=== PATIENT | female | born 1975 | race Caucasian/White ===

== ENCOUNTER 2016-07-26 10:59 | Day surgery (SDC) | payer OTHER ==
[~2016-07-26 10:59] MED LIST: Bupivacaine 0.25%/EPINEPHrine 1:200,000 10 ML SDV ONE; Lactated Ringers 1,000 ML IV SCH; Lidocaine 2% 5 ML SDV ONE; Midazolam 1 MG/ML 2 ML SDV ONE; Octyl 2-Cyanoacrylate 1 Tube ONE; Propofol 200 MG/20 ML SDV ONE; ceFAZolin 2 GM in Premix Bag 1 BAG IV ONE; fentaNYL 250 MCG/5 ML SDV ONE
[2016-07-26] MEDS ORDERED: Scopolamine 1.5 MG Transdermal Patch TRDERM PRN (11:20)
--- NOTE | 2016-07-26 11:20 | PCM.PREANE ---
Preanesthetic Assessment - Anesthesia/Transfusion/Family Hx Anesthesia History: Prior Anesthesia Without Reaction Transfusion History: No Prior Transfusion(s) - Physical Assessment Height: 1.63 m Weight: 89.358 kg - Allergies Allergies/Adverse Reactions: Allergies Allergy/AdvReac Type Severity Reaction Status Date / Time metoclopramide [From Reglan] Allergy Dizziness Verified 07/24/16 10:42 PreAnesthesia Questionnaire HEENT History: Reports: None Cardiovascular History: Reports: None Respiratory History: Reports: Asthma (controlled) Gastrointestinal History: Reports: GERD Other Gastrointestinal History: occasional reflux Genitourinary History: Reports: None 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: , Other (see below) (h/o rt.ovarian cyst) Musculoskeletal History: Reports: None Neurological History: Reports: None Psychiatric History: Reports: Anxiety Other Psychiatric History: states takes cymbalta for sleep more than anxiety Endocrine/Metabolic History: Reports: Obesity/BMI 30+ Hematologic History: Reports: None Immunologic History: Reports: None Oncologic (Cancer) History: Reports: None Dermatologic History: Reports: None - Past Surgical History Head Surgeries/Procedures: Reports: None HEENT Surgical History: Reports: None Cardiovascular Surgical History: Reports: None GI Surgical History: Reports: None Female Surgical History: Reports: section (x2), Endometrial ablation , Tubal ligation Other Female Surgeries/Procedures: hx of c/section x2, hysteroscopy with endometrial ablation, tubal ligation Endocrine Surgical History: Reports: None Neurological Surgical History: Reports: None Musculoskeletal Surgical History: Reports: None Oncologic Surgical History: Reports: None Dermatological Surgical History: Reports: None - SUBSTANCE USE Smoking Status *Q: Former Smoker Tobacco Use Within Last Twelve Months: No Recreational Drug Use History: No - HOME MEDS Home Medications: Home Meds Albuterol Sulfate [Proair Hfa] 1 puff INH ASDIRECTED PRN 02/07/16 [History] Citalopram Hydrobromide [Celexa] 20 mg PO BEDTIME 02/07/16 [History] Fluticasone/Vilanterol [Breo Ellipta 100-25 MCG Inhalation Kit] 1 inhalation INH DAILY 02/07/16 [History] Multivitamin [One Daily Multivitamin] 1 tab PO DAILY 02/07/16 [History] Phentermine HCl 1 tab PO DAILY 02/07/16 [History] Albuterol/Ipratropium [Take Home: Albuterol/Ipratropium 4 GM Inhaler] 1 puff INH ASDIRECTED PRN 07/24/16 [History] Biotin 1,000 mcg PO DAILY 07/24/16 [History] Magnesium Oxide 250 mg PO DAILY 07/24/16 [History] - CURRENT (IN HOUSE) MEDS Current Meds: Current Medications Lactated Ringer's (Ringers, Lactated) 1,000 mls @ 125 mls/hr IV ASDIRECTED SUE Discontinued Medications Bupivacaine HCl/Epinephrine Bitart (Marcaine 0.25%/Epinephrine 1:200,000) Confirm Administered Dose 20 ml .ROUTE .STK-MED ONE Stop: 07/26/16 08:25 Fentanyl (Sublimaze) Confirm Administered Dose 250 mcg .ROUTE .STK-MED ONE Stop: 07/26/16 10:14 Cefazolin Sodium/Dextrose 2 gm (/ Premix) 50 mls @ 100 mls/hr IV ONETIME ONE Stop: 07/26/16 05:29 Lidocaine (Xylocaine-Mpf 2%) Confirm Administered Dose 10 ml .ROUTE .STK-MED ONE Stop: 07/26/16 10:14 Midazolam HCl (Versed 1 Mg/Ml) Confirm Administered Dose 2 mg .ROUTE .STK-MED ONE Stop: 07/26/16 10:14 Octyl Cyanoacrylate (Dermabond Advance) Confirm Administered Dose 1 applic .ROUTE .STK-MED ONE Stop: 07/26/16 10:25 Propofol (Diprivan 20 Ml) Confirm Administered Dose 400 mg .ROUTE .STK-MED ONE Stop: 07/26/16 10:14 Preanesthetic Assessment - ANESTHESIA/TRANSFUSION/FAMILY HX Anesthesia/Transfusion History: Prior Anesthesia Type of Anesthesia Reaction: Denies: Allergy, Anesthesia Awareness, Excessive Somnolence, Excessive Nausea/Vomiting, Excessive Itching, Excessive Shivering, Malignant Hyperthermia, Malignant Hyperthermia, Family History, Pseudocholinesterase Deficiency, Pseudocholinesterase Deficiency, Family History of, Urinary Retention, Unknown, Other (see below) Family History of Anesthesia Reaction: No Other Intubation History Comment: no known problems - REVIEW OF SYSTEMS Constitutional: Reports: no symptoms MASTER STEAM YACHT: Reports: no symptoms Respiratory: Reports: no symptoms Cardiovascular: Reports: no symptoms GI: Reports: no symptoms Other: Reports: None - PHYSICAL ASSESSMENT Height: 1.63 m Weight: 89.358 kg ASA Class: 2 Mental Status: Alert & Oriented x3 Airway Class: Mallampati = 2 Dentition: Reports: Normal Dentition Thyro-Mental Finger Breadths: 2 Mouth Opening Finger Breadths: 3 ROM/Head Extension: Full Respiratory Status: lungs clear to auscultation bilaterally Cardiovascular Status: regular rate & rhythm, normal S1, S2, no murmur, blood pressure WNL - ALLERGIES Allergies/Adverse Reactions: Allergies Allergy/AdvReac Type Severity Reaction Status Date / Time metoclopramide [From Reglan] Allergy Dizziness Verified 07/24/16 10:42 - BLOOD Blood Available: No - ANESTHESIA PLAN Preop Beta Miguel: No Anesthesia Type Planned: General Anesthesia - ACKNOWLEDGEMENTS Pt an Appropriate Candidate for the Planned Anesthesia: Yes Alternatives and Risks of Anesthesia Discussed w Pt/Guardian: Yes Pt/Guardian Understands and Agrees with Anesthesia Plan: Yes
[2016-07-26] MEDS ORDERED: HYDROmorphone 2 MG/ML Syringe ONE (12:15)
[2016-07-26] MEDS ORDERED: fentaNYL 100 MCG/2 ML SDV IVPUSH PRN (12:30)
[2016-07-26] MEDS ORDERED: HYDROmorphone 2 MG/ML Syringe IVPUSH ONE (12:30)
[2016-07-26] MEDS ORDERED: fentaNYL 100 MCG/2 ML SDV ONE (12:53)
--- NOTE | 2016-07-26 13:17 | PCM.OPNOTE ---
- General Post-Op/Procedure Note Date of Surgery/Procedure: 07/26/16 Operative Procedure(s): lap kb Findings: gb is yellow and green, and with large amt of adhesion cw chronic and acute cholecystitis; wall is not thickened; [id number] Pre Op Diagnosis: chronic cholecystitis Post-Op Diagnosis: Same Anesthesia Technique: General ET tube Primary Surgeon: Ramsey Devine Pathology: sent Complications: None Condition: Good
[2016-07-26] MEDS ORDERED: Acetaminophen/oxyCODONE 325-10 MG Tab PO PRN (13:18)
--- NOTE | 2016-07-26 17:22 | PCM.SN ---
- Free Text/Narrative Note: Pt is still very sleepy, but able to ambulate at this time. Will try PO Rx for pain control.
--- NOTE | 2016-07-26 17:25 | OR ---
SURGEON: Ramsey Devine MD DATE OF PROCEDURE: 07/26/2016 PREOPERATIVE DIAGNOSIS: Chronic and acute cholecystitis. POSTOPERATIVE DIAGNOSIS: Chronic and acute cholecystitis. PROCEDURE PERFORMED: Laparoscopic cholecystectomy. INTRAOPERATIVE FINDIN. Gallbladder was yellow and green and with large amount of adhesion consistent with chronic and acute cholecystitis. 2. Wall is not thickened. 3. The patient has moderate amount of adhesion from some inflammatory process and have violin string adhesion on top of the liver consistent with possible pelvic inflammatory disease. Could be from previous Csection X 2. PROCEDURE IN DETAIL: The patient was taken to the operating room and placed in the supine position. After the intubation of general endotracheal anesthesia, the patient's abdomen was prepped and draped in the usual sterile fashion. Using [employer], a 12 mm trocar was placed supraumbilically and then followed with pneumoperitoneum. A 5 mm trocar was placed in the epigastrium and two 5 mm trocars placed in the right upper quadrant. The placement of the last three trocars was done under direct video supervision. Upon gaining entrance to the abdominal cavity, an extensive examination was then performed. The gallbladder was located and identified and retracted to the dome of the liver at the triangle of Calot. The cystic duct was clipped three more times and then using the endoscopic clip, was transected with placement of the endoscopic clip and transection was performed with care, ensuring the posterior prong of the instruments were clearly visualized prior to exercising the procedure. The gallbladder was dissected using electrocautery out of the liver bed and then removed using endoscopic bag through the umbilical site. The gallbladder was removed en bloc and there was no bile spillage and this was then followed with extensive irrigation until the bile was clear from blood and bile. The trocars were then removed under direct video supervision. The 12 mm umbilical site was then closed with deep stitches using 0 Vicryl followed with proximal stitches using 3-0 Vicryl and Dermabond. The other three trocar sites were closed with 3-0 Vicryl followed with approximation of skin with Dermabond. The patient was then awakened and extubated and transferred to the recovery room in hemodynamically stable condition. At the conclusion of the surgery, before closing the abdominal wound, instrument count and sponge count were done and were correct. The patient tolerated the procedure well and there were no intraoperative complications. Dr. Devine was present through the whole procedure. Just before surgery, a timeout was called. The patient was identified and procedure identified and procedure started. As always, thank you for the kind referral. MADDY GILMAN /[id number] MTDD
[2016-07-26 18:34] VITALS: BP 114/67
== END 2016-07-26 18:00 | disposition home or self-care (01) ==
LOC: MW.SDS 10:59
PROVIDERS: ATTEND Surgery
PROC: 0FT44ZZ Resection of Gallbladder, Percutaneous Endoscopic Approach (ICD-10-PCS; principal; 2016-07-26)
DX: K81.1 Chronic cholecystitis (principal); K66.0 Peritoneal adhesions (postprocedural) (postinfection); J45.909 Unspecified asthma, uncomplicated; K21.9 Gastro-esophageal reflux disease without esophagitis; F41.9 Anxiety disorder, unspecified; E66.9 Obesity, unspecified; Z87.891 Personal history of nicotine dependence; Z88.8 Allergy status to other drugs, medicaments and biological substances; Z79.899 Other long term (current) drug therapy; Z98.890 Other specified postprocedural states; Z98.51 Tubal ligation status; Z68.33 Body mass index [BMI] 33.0-33.9, adult
CPT/HCPCS: 47562; 81025; 88304; A9270; J1170; J2250; J3010; J7120; 00790; J2704

== ENCOUNTER 2018-02-13 06:49 | Day surgery (SDC) | payer OTHER ==
[2018-02-12 11:24] LABS: CHLORIDE,CL 106 mmol/L (98-107); SODIUM,NA 139 mmol/L (136-145)
[~2018-02-13 06:49] MED LIST changes: -Bupivacaine 0.25%/EPINEPHrine 1:200,000 10 ML SDV ONE; +Glycopyrrolate 0.2 MG/ML SDV ONE; -Lactated Ringers 1,000 ML IV SCH; +Neostigmine Methylsulfate 1 MG/ML 5 ML Syringe ONE; -Octyl 2-Cyanoacrylate 1 Tube ONE; +Ondansetron 4 MG/2 ML SDV ONE; +Rocuronium 10 MG/ML 10 ML Syringe ONE; +Sodium Chloride 0.9% 10 ML Syringe FLUSH PRN; +Sodium Chloride 0.9% 2.5 ML Syringe FLUSH PRN
[2018-02-13] MEDS: Lactated Ringers 1,000 ML IV SCH ×2 (07:16→14:53)
--- NOTE | 2018-02-13 07:28 | PCM.PREANE ---
Preanesthetic Assessment - Anesthesia/Transfusion/Family Hx Anesthesia History: Prior Anesthesia Without Reaction Family History of Anesthesia Reaction: No Transfusion History: No Prior Transfusion(s) - Review of Systems General: No Symptoms Pulmonary: No Symptoms Cardiovascular: No Symptoms Gastrointestinal: No Symptoms Neurological: No Symptoms Other: Reports: None - Physical Assessment NPO Status Date: 02/12/18 O2 Sat by Pulse Oximetry: 98 Respiratory Rate: 16 Vital Signs: Last Vital Signs Temp 36.4 C 02/13/18 07:11 Pulse 66 02/13/18 07:11 Resp 16 02/13/18 07:11 BP 110/58 L 02/13/18 07:11 Pulse Ox 98 02/13/18 07:11 Height: 1.63 m Weight: 81.193 kg ASA Class: 2 Mental Status: Alert & Oriented x3 Airway Class: Mallampati = 1 Dentition: Reports: Normal Dentition ROM/Head Extension: Full Lungs: Clear to Auscultation, Normal Respiratory Effort Cardiovascular: Regular Rate, Regular Rhythm - Lab Values: Laboratory Last Values WBC 6.93 K/uL (4.0-11.0) 02/12/18 10:36 RBC 4.22 M/uL (4.30-5.90) L 02/12/18 10:36 Hgb 13.4 g/dL (12.0-16.0) 02/12/18 10:36 Hct 39.3 % (36.0-46.0) 02/12/18 10:36 MCV 93.1 fL (80.0-98.0) 02/12/18 10:36 MCH 31.8 pg (27.0-32.0) 02/12/18 10:36 MCHC 34.1 g/dL (31.0-37.0) 02/12/18 10:36 RDW Std Deviation 39.3 fl (28.0-62.0) 02/12/18 10:36 RDW Coeff of Vitaliy 12 % (11.0-15.0) 02/12/18 10:36 Plt Count 314 K/uL (150-400) 02/12/18 10:36 MPV 10.00 fL (7.40-12.00) 02/12/18 10:36 Sodium 139 mmol/L (136-145) 02/12/18 10:36 Potassium 3.7 mmol/L (3.5-5.1) 02/12/18 10:36 Chloride 106 mmol/L (98-107) 02/12/18 10:36 Carbon Dioxide 21.8 mmol/L (21.0-32.0) 02/12/18 10:36 BUN 15 mg/dL (7.0-18.0) 02/12/18 10:36 Creatinine 0.8 mg/dL (0.6-1.0) 02/12/18 10:36 Est Cr Clr Drug Dosing 78.30 mL/min 02/12/18 10:36 Estimated GFR (MDRD) > 60.0 ml/min 02/12/18 10:36 Glucose 110 mg/dL (74-106) H 02/12/18 10:36 Calcium 8.4 mg/dL (8.5-10.1) L 02/12/18 10:36 HCG, Qual NEGATIVE (NEG) 02/12/18 10:36 Blood Type B POSITIVE 02/12/18 10:36 Antibody Screen NEGATIVE 02/12/18 10:36 - Allergies Allergies/Adverse Reactions: Allergies Allergy/AdvReac Type Severity Reaction Status Date / Time metoclopramide [From Reglan] Allergy Dizziness Verified 02/13/18 07:16 - Anesthesia Plan Pre-Op Medication Ordered: None - Acknowledgements Anesthesia Type Planned: General Anesthesia Pt an Appropriate Candidate for the Planned Anesthesia: Yes Alternatives and Risks of Anesthesia Discussed w Pt/Guardian: Yes Pt/Guardian Understands and Agrees with Anesthesia Plan: Yes Additional Comments: PMH: RAD, last exacerbation last summer. PreAnesthesia Questionnaire HEENT History: Reports: Other (See Below) Other HEENT History: uses glasses for driving Cardiovascular History: Reports: None Respiratory History: Reports: Asthma Gastrointestinal History: Reports: None Other Gastrointestinal History: occasional reflux Genitourinary History: Reports: None GAS WORKER History: Reports: Fibroids, Musculoskeletal History: Reports: Fracture Other Musculoskeletal History: hx of fx fingers Neurological History: Reports: None Psychiatric History: Reports: Anxiety Other Psychiatric History: states takes cymbalta for sleep more than anxiety Endocrine/Metabolic History: Reports: Obesity/BMI 30+ Hematologic History: Reports: None Immunologic History: Reports: None Oncologic (Cancer) History: Reports: None Dermatologic History: Reports: None - Past Surgical History Head Surgeries/Procedures: Reports: None HEENT Surgical History: Reports: None Cardiovascular Surgical History: Reports: None GI Surgical History: Reports: Cholecystectomy Female Surgical History: Reports: Section, Endometrial Ablation Other Female Surgeries/Procedures: hx of c/section x2, hysteroscopy with endometrial ablation, tubal ligation Endocrine Surgical History: Reports: None Neurological Surgical History: Reports: None Musculoskeletal Surgical History: Reports: None Oncologic Surgical History: Reports: None Dermatological Surgical History: Reports: None - SUBSTANCE USE Smoking Status *Q: Current Some Day Smoker Tobacco Use Within Last Twelve Months: Cigarettes Recreational Drug Use History: No - HOME MEDS Home Medications: Home Meds Albuterol Sulfate [Proair Hfa] 1 puff INH ASDIRECTED PRN 02/07/16 [History] Citalopram Hydrobromide [Celexa] 20 mg PO BEDTIME 02/07/16 [History] Fluticasone/Vilanterol [Breo Ellipta 100-25 MCG Inhalation Kit] 1 inhalation INH DAILY 02/07/16 [History] Phentermine/Topiramate [Qsymia 11.25 mg-69 mg Capsule] 1 cap PO DAILY 02/07/18 [ History] - CURRENT (IN HOUSE) MEDS Current Meds: Current Medications Lactated Ringer's (Ringers, Lactated) 1,000 mls @ 125 mls/hr IV ASDIRECTED SUE Last Admin: 02/13/18 07:16 Dose: 125 mls/hr Sodium Chloride (Saline Flush) 10 ml FLUSH ASDIRECTED PRN PRN Reason: Keep Vein Open Sodium Chloride (Saline Flush) 2.5 ml FLUSH ASDIRECTED PRN PRN Reason: Keep Vein Open Discontinued Medications Fentanyl (Sublimaze) Confirm Administered Dose 250 mcg .ROUTE .STK-MED ONE Stop: 02/13/18 06:49 Glycopyrrolate (Robinul) Confirm Administered Dose 0.4 mg .ROUTE .STK-MED ONE Stop: 02/13/18 06:48 Cefazolin Sodium/Dextrose 2 gm (/ Premix) 50 mls @ 100 mls/hr IV ONETIME ONE Stop: 02/12/18 09:02 Lidocaine (Xylocaine-Mpf 2%) Confirm Administered Dose 5 ml .ROUTE .STK-MED ONE Stop: 02/13/18 06:48 Midazolam HCl (Versed 1 Mg/Ml) Confirm Administered Dose 2 mg .ROUTE .STK-MED ONE Stop: 02/13/18 06:49 Neostigmine Methylsulfate (Neostigmine) Confirm Administered Dose 5 mg .ROUTE .STK-MED ONE Stop: 02/13/18 06:48 Ondansetron HCl (Zofran) Confirm Administered Dose 4 mg .ROUTE .STK-MED ONE Stop: 02/13/18 06:48 Propofol (Diprivan 20 Ml) Confirm Administered Dose 200 mg .ROUTE .STK-MED ONE Stop: 02/13/18 06:49 Rocuronium [place] (Zemuron) Confirm Administered Dose 100 mg .ROUTE .STK-MED ONE Stop: 02/13/18 06:48
[2018-02-13] MEDS ORDERED: Fluorescein 5 ML Vial ONE (07:52)
[2018-02-13] MEDS ORDERED: Octyl 2-Cyanoacrylate 1 Tube ONE (07:52)
[2018-02-13] MEDS ORDERED: Sodium Chloride 0.9% 20 ML ONE (08:16)
[2018-02-13] MEDS ORDERED: ceFAZolin 1 GM Vial ONE (08:16)
[2018-02-13] MEDS ORDERED: ePHEDrine 50 MG/ML SDV ONE (08:17)
[2018-02-13] MEDS ORDERED: fentaNYL 100 MCG/2 ML SDV IVPUSH PRN (08:27)
[2018-02-13] MEDS ORDERED: fentaNYL 100 MCG/2 ML SDV ONE (08:45)
[2018-02-13] MEDS ORDERED: Labetalol 100 MG/20 ML MDV ONE (08:49)
[2018-02-13] MEDS ORDERED: Furosemide 40 MG/4 ML VIAL ONE (09:28)
[2018-02-13] MEDS ORDERED: HYDROmorphone 2 MG/ML SDV ONE (09:48)
[2018-02-13] MEDS ORDERED: Glycopyrrolate 0.2 MG/ML SDV ONE (09:55)
[2018-02-13] MEDS ORDERED: Morphine 4 MG/ML Syringe IVPUSH PRN (09:58)
[2018-02-13] MEDS ORDERED: Acetaminophen/oxyCODONE 325-5 MG Tab PO PRN (09:58)
[2018-02-13] MEDS ORDERED: Ondansetron 4 MG/2 ML SDV IVPUSH PRN (09:58)
[2018-02-13] MEDS ORDERED: Promethazine 25 MG/ML SDV IM PRN (09:58)
[2018-02-13] MEDS ORDERED: Ketorolac 30 MG/ML SDV IVPUSH ONE (09:58)
--- NOTE | 2018-02-13 10:03 | PCM.OPNOTE ---
- General Post-Op/Procedure Note Date of Surgery/Procedure: 02/13/18 Operative Procedure(s): TLH,LSO, R. Salpengectomy and Cystoscopy. Pre Op Diagnosis: Bleeding , pelvic pain Post-Op Diagnosis: Same Anesthesia Technique: General ET Tube Primary Surgeon: Vasiliy Schilling Assistant Secretary: Roya Alejo EBL in mLs: 100 Complications: None Condition: Good
--- NOTE | 2018-02-13 11:06 | PCM.POSTAN ---
POST ANESTHESIA ASSESSMENT - MENTAL STATUS Mental Status: Alert, Oriented - RESPIRATORY Respiratory Status: Respiratory Rate WNL, Airway Patent, O2 Saturation Stable - CARDIOVASCULAR CV Status: Pulse Rate WNL, Blood Pressure Stable - GASTROINTESTINAL GI Status: No Symptoms - PAIN Pain Score: 0 - POST OP HYDRATION Hydration Status: Adequate & Stable
--- NOTE | 2018-02-13 12:00 | OR ---
SURGEON: Vasiliy Schilling MD DATE OF PROCEDURE: PREOPERATIVE DIAGNOSES: 1. Menometrorrhagia. 2. Pelvic pain. POSTOPERATIVE DIAGNOSES: 1. Menometrorrhagia. 2. Pelvic pain. OPERATIONS PERFORMED: Multiple puncture diagnostic laparoscopy, extensive lysis of adhesion of the uterus from the anterior abdominal wall and left pelvic sidewall, total laparoscopic hysterectomy, laparoscopic left salpingo-oophorectomy, laparoscopic right salpingectomy, and cystoscopy. BROKE BEATER OPERATOR: JONATHAN Miles ANESTHESIA: General with endotracheal intubation, Mr. Jerez and Dr. Aguilar. ESTIMATED BLOOD LOSS: 100 mL. COMPLICATIONS: None. FINDINGS: The uterus is about 12 week size, adherent densely to the anterior abdominal wall and the left pelvic sidewall. Otherwise no other abnormal findings other than the size of the uterus to about 12 weeks. INDICATION FOR SURGERY: [place] referred to the admit note. PROCEDURE IN DETAIL: The patient was brought to the OR, properly identified. After adequate level of anesthesia with a Rivas catheter in the bladder. The Wu surgical colpotomizer dilator was placed in the uterus and then the operation shifted abdominally. Stab wound done beneath the umbilicus. The Veress needle was placed in the peritoneal cavity and that cavity insufflated with 3.5 liter carbon dioxide. 12 placed in the left iliac fossa and another 5 mm trocar just below the left intercostal area to aid in the visualization and to aid in the dissection. Then the operation started by using the Harmonic scalpel, lysing of the adhesion of the uterus to the anterior abdominal wall and the left pelvic sidewall was done. The superior pedicle was coagulated, transected using the [place] Harmonic scalpel and restoring normal anatomy. Then a 5 mm trocar placed in the left iliac fossa and we proceeded with the coagulating and transecting the round ligament from both sides. The superior pedicle on the right side was taken. The right ovary was preserved and the right tube was removed and then the bladder dissected totally away from the operative field and after coagulating and transecting the uterine vessel at the level of the manipulator and using the harmonic scapula, circular incision in the vaginal mucosa around the tip of the VCare manipulator was done, detaching the cervix attachment from the vagina and the cervix, uterus, right tube, left tube, and ovary removed vaginally. Then pneumoperitoneum re-established by placing vaginal pack. A thorough irrigation of the operative field shows no oozing, no bleeding. We proceeded to close the vaginal cuff laparoscopically using 2-0 PDS interrupted sutures. While we were doing that, we asked Anesthesia to give the patient fluorescein and after closing the vagina and inspection of the all ovarian pedicle making sure there was no area of bleeding, the abdomen deflated and the Rivas catheter was removed. Cystoscopy was performed. The bladder was totally intact. Both ureteric orifices were seen with the dye coming from both of them. Thus, the patency of both ureters verified. Satisfied with this procedure, the instrument and hardware were retrieved from the abdomen and the vagina and the multiple laparoscopic incision was closed in layers. Instrument and sponge count was correct. The patient tolerated the procedure well, went to recovery room in stable general condition. TIERA GILMAN /[id number]
[2018-02-13] MEDS: Acetaminophen/oxyCODONE 325-5 MG Tab PO PRN ×2 (14:02→23:20)
[2018-02-13] MEDS ORDERED: Ketorolac 30 MG/ML SDV IVPUSH PRN (16:00)
[2018-02-13] MEDS ORDERED: Citalopram 20 MG Tab PO SCH (21:00)
[2018-02-14 05:40] LABS: CHLORIDE,CL 111 mmol/L (98-107); SODIUM,NA 142 mmol/L (136-145)
[2018-02-14] MEDS: Acetaminophen/oxyCODONE 325-5 MG Tab PO PRN (08:08)
[2018-02-14 08:12] VITALS: BP 102/58
--- NOTE | 2018-02-14 08:50 | PCM.SURGPN ---
- General Info Date of Service: 02/14/18 POD#: 1 Functional Status: Reports: Pain Controlled - Review of Systems General: Reports: No Symptoms HEENT: Reports: No Symptoms Pulmonary: Reports: No Symptoms Cardiovascular: Reports: No Symptoms Gastrointestinal: Reports: No Symptoms Genitourinary: Reports: No Symptoms Musculoskeletal: Reports: No Symptoms Skin: Reports: No Symptoms Neurological: Reports: No Symptoms Psychiatric: Reports: No Symptoms - Patient Data Vitals - Most Recent: Last Vital Signs Temp 37.0 C 02/14/18 08:00 Pulse 68 02/14/18 08:00 Resp 16 02/14/18 08:00 BP 102/58 L 02/14/18 08:00 Pulse Ox 98 02/14/18 08:00 Weight - Most Recent: 81.193 kg I&O - Last 24 Hours: Intake & Output 02/13/18 02/14/18 02/14/18 22:59 06:59 14:59 Intake Total 1237 1100 Output Total 200 2000 Balance 1037 -900 Lab Results Last 24 Hrs: Laboratory Results - last 24 hr 02/14/18 02/14/18 Range/Units 04:55 04:55 WBC 7.49 (4.0-11.0) K/uL RBC 3.64 L (4.30-5.90) M/uL Hgb 11.5 L (12.0-16.0) g/dL Hct 34.3 L (36.0-46.0) % MCV 94.2 (80.0-98.0) fL MCH 31.6 (27.0-32.0) pg MCHC 33.5 (31.0-37.0) g/dL RDW Std Deviation 43.6 (28.0-62.0) fl RDW Coeff of Vitaliy 13 (11.0-15.0) % Plt Count 262 (150-400) K/uL MPV 9.80 (7.40-12.00) fL Neut % (Auto) 70.5 (48.0-80.0) % Lymph % (Auto) 17.8 (16.0-40.0) % [place] % (Auto) 5.2 (0.0-15.0) % Eos % (Auto) 6.4 (0.0-7.0) % Baso % (Auto) 0.1 (0.0-1.5) % Neut # (Auto) 5.3 (1.4-5.7) K/uL Lymph # (Auto) 1.3 (0.6-2.4) K/uL [place] # (Auto) 0.4 (0.0-0.8) K/uL Eos # (Auto) 0.5 (0.0-0.7) K/uL Baso # (Auto) 0.0 (0.0-0.1) K/uL Nucleated RBC % 0.0 /100WBC Nucleated RBCs # 0 K/uL Sodium 142 (136-145) mmol/L Potassium 3.9 (3.5-5.1) mmol/L Chloride 111 H (98-107) mmol/L Carbon Dioxide 25.0 (21.0-32.0) mmol/L BUN 8 (7.0-18.0) mg/dL Creatinine 0.7 (0.6-1.0) mg/dL Est Cr Clr Drug Dosing 89.48 mL/min Estimated GFR (MDRD) > 60.0 ml/min Glucose 103 (74-106) mg/dL Calcium 7.8 L (8.5-10.1) mg/dL Med Orders - Current: Current Medications Citalopram Hydrobromide (Celexa) 20 mg PO BEDTIME [facility] Last Admin: 02/13/18 20:53 Dose: 20 mg Lactated Ringer's (Ringers, Lactated) 1,000 mls @ 125 mls/hr IV ASDIRECTED [facility] Last Admin: 02/13/18 14:53 Dose: 125 mls/hr Ketorolac Tromethamine (Toradol) 30 mg IVPUSH Q6H PRN PRN Reason: Pain (severe 7-10) Stop: 02/18/18 16:01 Last Admin: 02/13/18 16:42 Dose: 30 mg Morphine Sulfate (Morphine) 4 mg IVPUSH Q2H PRN PRN Reason: Pain (severe 7-10) Ondansetron HCl (Zofran) 4 mg IVPUSH Q6H PRN PRN Reason: Nausea/Vomiting Oxycodone/Acetaminophen (Percocet 325-5 Mg) 1 tab PO Q4H PRN PRN Reason: Pain (moderate 4-6) Oxycodone/Acetaminophen (Percocet 325-5 Mg) 2 tab PO Q4H PRN PRN Reason: Pain (moderate 4-6) Last Admin: 02/14/18 08:08 Dose: 2 tab Breo Ellipta 1 each INH DAILY SUE Promethazine HCl (Phenergan) 25 mg IM Q6H PRN PRN Reason: Nausea/Vomiting Sodium Chloride (Saline Flush) 10 ml FLUSH ASDIRECTED PRN PRN Reason: Keep Vein Open Sodium Chloride (Saline Flush) 2.5 ml FLUSH ASDIRECTED PRN PRN Reason: Keep Vein Open Discontinued Medications Cefazolin Sodium (Ancef) Confirm Administered Dose 2 gm .ROUTE .STK-MED ONE Stop: 02/13/18 08:17 Ephedrine Sulfate (Ephedrine Sulfate) Confirm Administered Dose 50 mg .ROUTE .STK-MED ONE Stop: 02/13/18 08:18 Fentanyl (Sublimaze) Confirm Administered Dose 250 mcg .ROUTE .STK-MED ONE Stop: 02/13/18 06:49 Fentanyl (Sublimaze) 50 mcg IVPUSH Q5M PRN PRN Reason: Pain (severe 7-10) Stop: 02/14/18 08:27 Fentanyl (Sublimaze) Confirm Administered Dose 100 mcg .ROUTE .STK-MED ONE Stop: 02/13/18 08:46 Fluorescein Sodium (Ak-Fluor) Confirm Administered Dose 5 ml .ROUTE .STK-MED ONE Stop: 02/13/18 07:53 Furosemide (Lasix) Confirm Administered Dose 40 mg .ROUTE .STK-MED ONE Stop: 02/13/18 09:29 Glycopyrrolate (Robinul) Confirm Administered Dose 0.4 mg .ROUTE .STK-MED ONE Stop: 02/13/18 06:48 Glycopyrrolate (Robinul) Confirm Administered Dose 0.4 mg .ROUTE .STK-MED ONE Stop: 02/13/18 09:56 Hydromorphone HCl (Dilaudid) Confirm Administered Dose 2 mg .ROUTE .STK-MED ONE Stop: 02/13/18 09:49 Cefazolin Sodium/Dextrose 2 gm (/ Premix) 50 mls @ 100 mls/hr IV ONETIME ONE Stop: 02/12/18 09:02 Last Admin: 02/13/18 11:38 Dose: Not Given Sodium Chloride (Normal Saline) Confirm Administered Dose 20 mls @ as directed .ROUTE .STK-MED ONE Stop: 02/13/18 08:17 Influenza Virus Vaccine (Pharmacy To Dose - Influenza Vaccine) 1 each IM ONETIME ONE Stop: 02/13/18 12:19 Ketorolac Tromethamine (Toradol) 30 mg IVPUSH ONETIME ONE Stop: 02/13/18 09:59 Last Admin: 02/13/18 10:49 Dose: 30 mg Labetalol HCl (Normodyne) Confirm Administered Dose 100 mg .ROUTE .STK-MED ONE Stop: 02/13/18 08:50 Lidocaine (Xylocaine-Mpf 2%) Confirm Administered Dose 5 ml .ROUTE .STK-MED ONE Stop: 02/13/18 06:48 Midazolam HCl (Versed 1 Mg/Ml) Confirm Administered Dose 2 mg .ROUTE .STK-MED ONE Stop: 02/13/18 06:49 Neostigmine Methylsulfate (Neostigmine) Confirm Administered Dose 5 mg .ROUTE .STK-MED ONE Stop: 02/13/18 06:48 Octyl Cyanoacrylate (Dermabond Advance) Confirm Administered Dose 1 applic .ROUTE .STK-MED ONE Stop: 02/13/18 07:53 Ondansetron HCl (Zofran) Confirm Administered Dose 4 mg .ROUTE .STK-MED ONE Stop: 02/13/18 06:48 Propofol (Diprivan 20 Ml) Confirm Administered Dose 200 mg .ROUTE .STK-MED ONE Stop: 02/13/18 06:49 [facility] (Zemuron) Confirm Administered Dose 100 mg .ROUTE .STK-MED ONE Stop: 02/13/18 06:48 - Exam Wound/Incisions: Healing Well General: Alert, Oriented HEENT: Pupils Equal Neck: Supple Lungs: Clear to Auscultation, Normal Respiratory Effort Cardiovascular: Regular Rate, Regular Rhythm GI/Abdominal Exam: Normal Bowel Sounds, Soft, Non-Tender, No Organomegaly, No Distention, No Abnormal Bruit, No Mass, Pelvis Stable Extremities: Normal Inspection, Normal Range of Motion, Non-Tender, No Pedal Edema, Normal Capillary Refill Skin: Warm, Dry, Intact Neurological: No New Focal Deficit Psy/Mental Status: Alert, Normal Affect, Normal Mood - Problem List Review Problem List Initiated/Reviewed/Updated: Yes - My Orders Last 24 Hours: Active Orders 24 hr Category Date Time Status Patient Status [ADT] Routine ADT 02/13/18 09:58 Active Communication Order [RC] DAILY Care 02/13/18 14:07 Active Influenza Vaccine Charge [RC] .DISCHARGE Care 02/13/18 12:18 Active Notify Provider Vital Signs [RC] ASDIRECTED Care 02/13/18 09:58 Active RT Incentive Spirometry [RC] Q2HWA Care 02/13/18 09:58 Active Up With Assistance [RC] PER UNIT ROUTINE Care 02/13/18 09:58 Active Up ad [place] [RC] PER UNIT ROUTINE Care 02/13/18 09:58 Active Regular Diet [DIET] Diet 02/13/18 Dinner Active Acetaminophen/oxyCODONE [Percocet 325-5 MG] Med 02/13/18 09:58 Active 1 tab PO Q4H PRN Acetaminophen/oxyCODONE [Percocet 325-5 MG] Med 02/13/18 09:58 Active 2 tab PO Q4H PRN Citalopram [Celexa] Med 02/13/18 21:00 Active 20 mg PO BEDTIME Ketorolac [Toradol] Med 02/13/18 16:00 Active 30 mg IVPUSH Q6H PRN Morphine Med 02/13/18 09:58 Active 4 mg IVPUSH Q2H PRN Ondansetron [Zofran] Med 02/13/18 09:58 Active 4 mg IVPUSH Q6H PRN Patient's Own Medication [Ptom] Med 02/14/18 09:00 Active 1 each INH DAILY Promethazine [Phenergan] Med 02/13/18 09:58 Active 25 mg IM Q6H PRN Peripheral IV Discontinue [OM.PC] Routine Oth 02/13/18 09:58 Ordered Sequential Compression Device [OM.PC] Per Unit Routine Oth 02/13/18 09:58 Ordered Resuscitation Status Routine Resus Stat 02/13/18 09:58 Ordered Medication Orders Citalopram Hydrobromide (Celexa) 20 mg PO BEDTIME [facility] Last Admin: 02/13/18 20:53 Dose: 20 mg Lactated Ringer's (Ringers, Lactated) 1,000 mls @ 125 mls/hr IV ASDIRECTED [facility] Last Admin: 02/13/18 14:53 Dose: 125 mls/hr Infusion: 02/13/18 14:53 Dose: 125 mls/hr Admin: 02/13/18 07:16 Dose: 125 mls/hr Ketorolac Tromethamine (Toradol) 30 mg IVPUSH Q6H PRN PRN Reason: Pain (severe 7-10) Stop: 02/18/18 16:01 Last Admin: 02/13/18 16:42 Dose: 30 mg Morphine Sulfate (Morphine) 4 mg IVPUSH Q2H PRN PRN Reason: Pain (severe 7-10) Ondansetron HCl (Zofran) 4 mg IVPUSH Q6H PRN PRN Reason: Nausea/Vomiting Oxycodone/Acetaminophen (Percocet 325-5 Mg) 1 tab PO Q4H PRN PRN Reason: Pain (moderate 4-6) Oxycodone/Acetaminophen (Percocet 325-5 Mg) 2 tab PO Q4H PRN PRN Reason: Pain (moderate 4-6) Last Admin: 02/14/18 08:08 Dose: 2 tab Admin: 02/13/18 23:20 Dose: 2 tab Admin: 02/13/18 14:02 Dose: 2 tab Breo Ellipta 1 each INH DAILY SUE Promethazine HCl (Phenergan) 25 mg IM Q6H PRN PRN Reason: Nausea/Vomiting Sodium Chloride (Saline Flush) 10 ml FLUSH ASDIRECTED PRN PRN Reason: Keep Vein Open Sodium Chloride (Saline Flush) 2.5 ml FLUSH ASDIRECTED PRN PRN Reason: Keep Vein Open - Assessment Assessment (Free Text/Narrative):: Status post total laparoscopic hysterectomy postoperative day #1 the patient is doing well with voiding without any problem minimum vaginal bleeding on regular diet tolerated very well. Had pain is under control. - Plan Plan (Free Text/Narrative):: I am sending the patient home with the post hysterectomy instruction the patient is given prescription of Percocet 7.5/3/25/20 tablet to take when necessary for pain she have a follow-up appointment to come to the office in one week
[2018-02-14] MEDS ORDERED: BREO ELLIPTA INH SCH (09:00)
== END 2018-02-14 10:05 | disposition home or self-care (01) ==
LOC: MW.SDS 06:49 → MW.MS 10:59 → MW.SDS 02-14 10:05
PROVIDERS: ATTEND Obstetrics & Gynecology
DX: D25.1 Intramural leiomyoma of uterus (principal); N72 Inflammatory disease of cervix uteri; N83.02 Follicular cyst of left ovary; N73.6 Female pelvic peritoneal adhesions (postinfective); J45.909 Unspecified asthma, uncomplicated; E66.9 Obesity, unspecified; K21.9 Gastro-esophageal reflux disease without esophagitis; F41.9 Anxiety disorder, unspecified; F17.210 Nicotine dependence, cigarettes, uncomplicated; Z79.899 Other long term (current) drug therapy; Z88.8 Allergy status to other drugs, medicaments and biological substances
CPT/HCPCS: 36415; 58571; 80048; 84703; 85025; 85027; 86850; 86900; 86901; 90686; A9270; J0690; J1170; J1885; J1940; J2250; J2405; J2704; J3010; J3490; J7120; 00840; 88307

== ENCOUNTER 2018-09-24 14:43 | Emergency (ER) | payer OTHER ==
[2018-09-24] MEDS ORDERED: Aspirin 81 MG Tab.Chew PO ONE (15:15)
[2018-09-24] MEDS ORDERED: Sodium Chloride 0.9% 10 ML Syringe FLUSH PRN (15:15)
[2018-09-24] MEDS ORDERED: Sodium Chloride 0.9% 2.5 ML Syringe FLUSH PRN (15:15)
[2018-09-24] MEDS ORDERED: Ketorolac 30 MG/ML SDV IVPUSH ONE (15:30)
[2018-09-24] MEDS ORDERED: Sodium Chloride 0.9% 1,000 ML IV ONE (15:30)
--- NOTE | 2018-09-24 15:30 | EDM.PDOC ---
ED HPI GENERAL MEDICAL PROBLEM - General Chief Complaint: Chest Pain Stated Complaint: CHEST PAIN Time Seen by Provider: 09/24/18 15:12 Source of Information: Reports: Patient History Limitations: Reports: No Limitations - History of Present Illness INITIAL COMMENTS - FREE TEXT/NARRATIVE: HISTORY AND PHYSICAL: History of present illness: Patient is a 43-year-old female who presents to the emergency room with complaints of a frontal headache and midsternal chest pain times one hour prior to arrival. She states she has this sensation of a "tight feeling" to her anterior chest/midsternal area. The pain is localized and reproducible with palpation. The pain does not radiate anywhere. She states she has been coughing more frequently over the past 1 week as she has increased her tobacco smoking use. She has been a pack per day smoker for approximately 20 years. She also has a headache which she says she does have some light sensitivity, no noise sensitivity or nausea associated with this. Denies any head injury, trauma or falls. Patient denies any fever, chills, change in vision, syncope or near syncope. Denies any back pain or shortness of breath. Denies any abdominal pain, nausea, vomiting, diarrhea, constipation or dysuria. Has not noted any blood in urine or stool. Patient has been eating and drinking appropriately. Review of systems: As per history of present illness and below otherwise all systems reviewed and negative. Past medical history: As per history of present illness and as reviewed below otherwise noncontributory. Surgical history: As per history of present illness and as reviewed below otherwise noncontributory. Social history: See social history for further information Family history: As per history of present illness and as reviewed below otherwise noncontributory. Physical exam: General: Well-developed and well-nourished 43-year-old female. Alert and oriented. Nontoxic appearing and in no acute distress. HEENT: Atraumatic, normocephalic, pupils equal and reactive bilaterally, negative for conjunctival pallor or scleral icterus, mucous membranes moist, trachea midline. No drooling or trismus noted. No meningeal signs. No hot potato voice noted. Lungs: Clear to auscultation, breath sounds equal bilaterally, chest pain is reproducible with palpation to the anterior mid sternum. Heart: S1S2, regular rate and rhythm without overt murmur Abdomen: Soft, nondistended, nontender. Negative for masses or hepatosplenomegaly. Negative for costovertebral tenderness. Pelvis: Stable nontender. Genitourinary: Deferred. Rectal: Deferred. Skin: Intact, warm, dry. No lesions or rashes noted. Extremities: Atraumatic, moves all extremities per self without difficulty or deficits, negative for cords or calf pain. Neurovascular unremarkable. Neuro: Awake, alert, oriented. Cranial nerves II through XII unremarkable. Cerebellum unremarkable. Motor and sensory unremarkable throughout. Exam nonfocal. Notes: Lab work is unremarkable. Her chest x-ray shows no acute findings. EKG shows a normal sinus rhythm with a rate of 63. Vital signs have been stable. I did offer her admission for continued observation. She declines. is at the bedside, stating that they will return if her symptoms continue, worsen or new symptoms develop. Supportive care measures were reviewed and discussed. Voices understanding and is agreeable to plan of care. Denies any further questions or concerns at this time. Diagnostics: CBC, CMP, chest x-ray, troponin, EKG Therapeutics: Aspirin, normal saline, Toradol Prescription: None Impression: Atypical chest pain Headache Plan: 1. Stop smoking 2. Follow up with your primary care provider as we discussed. 3. Return to the ED as needed and as discussed. Definitive disposition and diagnosis as appropriate pending reevaluation and review of above. chest Pain Score (Numeric/FACES): 5 - Related Data Allergies Allergy/AdvReac Type Severity Reaction Status Date / Time metoclopramide [From Reglan] Allergy Dizziness Verified 02/13/18 07:16 Home Meds: Home Meds Albuterol Sulfate [Proair Hfa] 1 puff INH ASDIRECTED PRN 02/07/16 [History] Citalopram Hydrobromide [Celexa] 20 mg PO BEDTIME 02/07/16 [History] Fluticasone/Vilanterol [Breo Ellipta 100-25 MCG Inhalation Kit] 1 inhalation INH DAILY 02/07/16 [History] Phentermine/Topiramate [Qsymia 11.25 mg-69 mg Capsule] 1 cap PO DAILY 02/07/18 [ History] oxyCODONE HCl/Acetaminophen [Percocet 7.5-325 mg Tablet] 1 each PO Q4H #20 tablet 02/14/18 [Rx] Past Medical History HEENT History: Reports: None Other HEENT History: uses glasses for driving Cardiovascular History: Reports: None Respiratory History: Reports: Asthma Gastrointestinal History: Reports: GERD Other Gastrointestinal History: occasional reflux Genitourinary History: Reports: None [employer] History: Reports: , Other (See Below) Musculoskeletal History: Reports: None Other Musculoskeletal History: hx of fx fingers Neurological History: Reports: None Psychiatric History: Reports: Anxiety Other Psychiatric History: states takes cymbalta for sleep more than anxiety Endocrine/Metabolic History: Reports: Obesity/BMI 30+ Hematologic History: Reports: None Immunologic History: Reports: None Oncologic (Cancer) History: Reports: None Dermatologic History: Reports: None - Infectious Disease History Infectious Disease History: Reports: Chicken Pox, Shingles - Past Surgical History Head Surgeries/Procedures: Reports: None Cardiovascular Surgical History: Reports: None GI Surgical History: Reports: Cholecystectomy Female Surgical History: Reports: Section, Endometrial Ablation, Hysterectomy, Tubal Ligation Endocrine Surgical History: Reports: None Neurological Surgical History: Reports: None Oncologic Surgical History: Reports: None Dermatological Surgical History: Reports: None Social & Family History - Family History Family Medical History: Noncontributory - Tobacco Use Smoking Status *Q: Current Every Day Smoker Years of Tobacco use: 20 Packs/Tins Daily: 1 - Caffeine Use Caffeine Use: Reports: Coffee - Recreational Drug Use Recreational Drug Use: No ED ROS GENERAL - Review of Systems Review Of Systems: ROS reveals no pertinent complaints other than HPI. ED EXAM, GENERAL - Physical Exam Exam: See Below (See dictation) Course - Vital Signs Last Recorded V/S: Last Vital Signs Temp 98 F 09/24/18 14:51 Pulse 56 L 09/24/18 17:11 Resp 18 09/24/18 17:11 BP 123/69 09/24/18 17:11 Pulse Ox 100 09/24/18 17:11 - Orders/Labs/Meds Orders: Active Orders 24 hr Category Date Time Status EKG Documentation Completion [RC] STAT Care 09/24/18 15:15 Active Saline Lock Insert [OM.PC] Stat Oth 09/24/18 15:15 Ordered Labs: Laboratory Tests 09/24/18 09/24/18 Range/Units 15:25 15:25 WBC 6.24 (4.0-11.0) K/uL RBC 4.11 L (4.30-5.90) M/uL Hgb 12.7 (12.0-16.0) g/dL Hct 37.6 (36.0-46.0) % MCV 91.5 (80.0-98.0) fL MCH 30.9 (27.0-32.0) pg MCHC 33.8 (31.0-37.0) g/dL RDW Std Deviation 43.3 (28.0-62.0) fl RDW Coeff of Vitaliy 13 (11.0-15.0) % Plt Count 297 (150-400) K/uL MPV 10.00 (7.40-12.00) fL Neut % (Auto) 59.7 (48.0-80.0) % Lymph % (Auto) 30.8 (16.0-40.0) % [place] % (Auto) 5.8 (0.0-15.0) % Eos % (Auto) 3.4 (0.0-7.0) % Baso % (Auto) 0.3 (0.0-1.5) % Neut # (Auto) 3.7 (1.4-5.7) K/uL Lymph # (Auto) 1.9 (0.6-2.4) K/uL [place] # (Auto) 0.4 (0.0-0.8) K/uL Eos # (Auto) 0.2 (0.0-0.7) K/uL Baso # (Auto) 0.0 (0.0-0.1) K/uL Nucleated RBC % 0.0 /100WBC Nucleated RBCs # 0 K/uL Sodium 141 (136-145) mmol/L Potassium 3.5 (3.5-5.1) mmol/L Chloride 108 H (98-107) mmol/L Carbon Dioxide 21.9 (21.0-32.0) mmol/L BUN 16 (7.0-18.0) mg/dL Creatinine 0.8 (0.6-1.0) mg/dL Est Cr Clr Drug Dosing 77.49 mL/min Estimated GFR (MDRD) > 60.0 ml/min Glucose 86 (74-106) mg/dL Calcium 8.4 L (8.5-10.1) mg/dL Total Bilirubin 0.4 (0.2-1.0) mg/dL AST 11 L (15-37) IU/L ALT 22 (14-63) IU/L Alkaline Phosphatase 62 (46-116) U/L Troponin I < 0.050 (0.000-0.056) ng/mL Total Protein 6.9 (6.4-8.2) g/dL Albumin 3.6 (3.4-5.0) g/dL Globulin 3.3 (2.6-4.0) g/dL Albumin/Globulin Ratio 1.1 (0.9-1.6) Meds: Medications Discontinued Medications Generic Name Dose Route Start Last Admin Trade Name Freq PRN Reason Stop Dose Admin Aspirin 324 mg 09/24/18 15:15 09/24/18 15:20 Aspirin PO 09/24/18 15:16 324 mg ONETIME ONE Administration Sodium Chloride 1,000 mls @ 999 mls/hr 09/24/18 15:30 09/24/18 15:35 Normal Saline IV 09/24/18 16:30 999 mls/hr STAT ONE Administration Ketorolac Tromethamine 30 mg 09/24/18 15:30 09/24/18 15:35 Toradol IVPUSH 09/24/18 15:31 30 mg ONETIME ONE Administration Morphine Sulfate 4 mg 09/24/18 16:30 09/24/18 16:34 Morphine IVPUSH 09/24/18 16:31 4 mg ONETIME ONE Administration Sodium Chloride 10 ml 09/24/18 15:15 09/24/18 15:21 Saline Flush FLUSH 10 ml ASDIRECTED PRN Administration Keep Vein Open Sodium Chloride 2.5 ml 09/24/18 15:15 09/24/18 15:21 Saline Flush FLUSH 2.5 ml ASDIRECTED PRN Administration Keep Vein Open Departure - Departure Time of Disposition: 18:54 Disposition: Home, Self-Care 01 Clinical Impression: Atypical chest pain Headache Qualifiers: Headache type: unspecified Headache chronicity pattern: acute headache Intractability: not intractable Qualified Code(s): R51 - Headache Instructions: Nonspecific Chest Pain Referrals: PCP,None [Primary Care Provider] - Forms: ED Department Discharge Additional Instructions: The following information is given to patients seen in the emergency department who are being discharged to home. This information is to outline your options for follow-up care. We provide all patients seen in our emergency department with a follow-up referral. The need for follow-up, as well as the timing and circumstances, are variable depending upon the specifics of your emergency department visit. If you don't have a primary care physician on staff, we will provide you with a referral. We always advise you to contact your personal physician following an emergency department visit to inform them of the circumstance of the visit and for follow-up with them and/or the need for any referrals to a consulting specialist. The emergency department will also refer you to a specialist when appropriate. This referral assures that you have the opportunity for follow-up care with a specialist. All of these measure are taken in an effort to provide you with optimal care, which includes your follow-up. Under all circumstances we always encourage you to contact your private physician who remains a resource for coordinating your care. When calling for follow-up care, please make the office aware that this follow-up is from your recent emergency room visit. If for any reason you are refused follow-up, please contact the [facility] Emergency Department at and asked to speak to the emergency department charge nurse. [facility] [address] [place] [address] [id number] 1. Stop smoking 2. Follow up with your primary care provider as we discussed. 3. Return to the ED as needed and as discussed. - My Orders Last 24 Hours: My Active Orders 09/24/18 15:15 EKG Documentation Completion [RC] STAT Saline Lock Insert [OM.PC] Stat - Assessment/Plan Last 24 Hours: My Active Orders 09/24/18 15:15 EKG Documentation Completion [RC] STAT Saline Lock Insert [OM.PC] Stat
--- NOTE | 2018-09-24 15:39 | CR ---
EXAMINATION: Portable chest radiograph. HISTORY: Chest pain. FINDINGS: The trachea is midline. The cardiomediastinal silhouette is within normal limits. No pulmonary infiltrates, effusions or pneumothorax. Osseous structures appear unremarkable. IMPRESSION: No acute cardiopulmonary process.
[2018-09-24 16:08] LABS: CHLORIDE,CL 108 mmol/L (98-107); SODIUM,NA 141 mmol/L (136-145)
[2018-09-24] MEDS ORDERED: Morphine 4 MG/ML Syringe IVPUSH ONE (16:30)
[2018-09-24 17:12] VITALS: BP 123/69
== END 2018-09-24 17:12 | disposition home or self-care (01) ==
LOC: MW.ED 14:43
DX: R07.89 Other chest pain (principal); R51 Headache; K21.9 Gastro-esophageal reflux disease without esophagitis; F41.9 Anxiety disorder, unspecified; F17.210 Nicotine dependence, cigarettes, uncomplicated; Z88.8 Allergy status to other drugs, medicaments and biological substances; Z79.899 Other long term (current) drug therapy
CPT/HCPCS: 36415; 71045; 80053; 84484; 85025; 93005; 96361; 96374; 96375; 99285; A9270; J1885; J7040; 99283; J2270

== ENCOUNTER 2020-07-20 09:00 | Day surgery (SDC) | payer BC, OTHER ==
[~2020-07-20 09:00] MED LIST changes: -Glycopyrrolate 0.2 MG/ML SDV ONE; +Lactated Ringers 1,000 ML IV SCH; -Lidocaine 2% 5 ML SDV ONE; -Neostigmine Methylsulfate 1 MG/ML 5 ML Syringe ONE; -Rocuronium 10 MG/ML 10 ML Syringe ONE; -Sodium Chloride 0.9% 10 ML Syringe FLUSH PRN; -Sodium Chloride 0.9% 2.5 ML Syringe FLUSH PRN; -ceFAZolin 2 GM in Premix Bag 1 BAG IV ONE; +fentaNYL 100 MCG/2 ML SDV ONE; -fentaNYL 250 MCG/5 ML SDV ONE
--- NOTE | 2020-07-20 09:41 | PCM.PREANE ---
Preanesthetic Assessment - Anesthesia/Transfusion/Family Hx Anesthesia History: Prior Anesthesia Without Reaction Family History of Anesthesia Reaction: No Transfusion History: No Prior Transfusion(s) - Review of Systems General: No Symptoms Pulmonary: No Symptoms Cardiovascular: No Symptoms Gastrointestinal: No Symptoms Neurological: No Symptoms Other: Reports: None - Physical Assessment NPO Status Date: 07/19/20 NPO Status Time: 20:00 Height: 1.63 m Weight: 83.461 kg ASA Class: 2 Mental Status: Alert & Oriented x3 Airway Class: Mallampati = 2 Dentition: Reports: Normal Dentition Thyro-Mental Finger Breadths: 3 Mouth Opening Finger Breadths: 3 ROM/Head Extension: Full Lungs: Clear to Auscultation, Normal Respiratory Effort Cardiovascular: Regular Rate, Regular Rhythm - Allergies Allergies/Adverse Reactions: Allergies Allergy/AdvReac Type Severity Reaction Status Date / Time metoclopramide [From Reglan] Allergy Nausea and Verified 07/14/20 12:47 Vomiting - Acknowledgements Anesthesia Type Planned: MAC (The patient understands and accepts the risks and benefits of MAC. All questions answered. She has consented. ) Pt an Appropriate Candidate for the Planned Anesthesia: Yes Alternatives and Risks of Anesthesia Discussed w Pt/Guardian: Yes Pt/Guardian Understands and Agrees with Anesthesia Plan: Yes PreAnesthesia Questionnaire HEENT History: Reports: None Other HEENT History: wears glasses Cardiovascular History: Reports: None Respiratory History: Reports: Asthma (used breo today) Other Respiratory History: exercise induced asthma Gastrointestinal History: Reports: GERD (controlled) Other Gastrointestinal History: occasional reflux Genitourinary History: Reports: None [employer]PER History: Reports: Endometrial Ablation, Fibroids, Musculoskeletal History: Reports: Fracture Other Musculoskeletal History: hx of fx fingers Neurological History: Reports: None Psychiatric History: Reports: Depression Endocrine/Metabolic History: Reports: Obesity/BMI 30+ Hematologic History: Reports: None Immunologic History: Reports: None Oncologic (Cancer) History: Reports: None Dermatologic History: Reports: None - Infectious Disease History Infectious Disease History: Reports: Chicken Pox, Shingles, Other (See Below) (covid negative) - Past Surgical History Head Surgeries/Procedures: Reports: None HEENT Surgical History: Reports: None Cardiovascular Surgical History: Reports: None GI Surgical History: Reports: Cholecystectomy Female Surgical History: Reports: Section, Endometrial Ablation, Hysterectomy, Salpingo-Oophorectomy, Tubal Ligation Other Female Surgeries/Procedures: hx of c/section x2 Endocrine Surgical History: Reports: None Neurological Surgical History: Reports: None Musculoskeletal Surgical History: Reports: None Oncologic Surgical History: Reports: None Dermatological Surgical History: Reports: None - History Comment History Comment: etoh 1 x a week. - SUBSTANCE USE Tobacco Use Status *Q: Current Some Day Tobacco User (15 years ago) Recreational Drug Use History: No - HOME MEDS Home Medications: Home Meds Albuterol Sulfate [Proair Hfa] 1 puff INH ASDIRECTED PRN 02/07/16 [History] Citalopram Hydrobromide [Celexa] 20 mg PO BEDTIME 02/07/16 [History] Fluticasone/Vilanterol [Breo Ellipta 100-25 MCG Inhalation Kit] 1 inhalation INH DAILY 02/07/16 [History] Phentermine/Topiramate [Qsymia 11.25 mg-69 mg Capsule] 1 cap PO DAILY 02/07/18 [History] Ibuprofen 400 mg PO Q4H PRN 07/14/20 [History] Multivit with Calcium,Iron,Min [One Daily Women's] 1 tab PO DAILY 07/14/20 [History] Multivitamin 1 tab PO DAILY 07/14/20 [History]
[2020-07-20] MEDS ORDERED: Lidocaine 2% 5 ML SDV ONE (10:01)
--- NOTE | 2020-07-20 10:37 | PCM.OPNOTE ---
- General Post-Op/Procedure Note Date of Surgery/Procedure: 07/20/20 Operative Procedure(s): egd w bx. colonoscope w random bx Findings: see [id number]; start on omeprazole 40mg po qday X 1 mo w 3 refills; pt reported did the gluten challenge Pre Op Diagnosis: BRBPR and abd pain Post-Op Diagnosis: Same Anesthesia Technique: Moderate Sedation Primary Surgeon: Ramsey Devine Pathology: egd w bx; and duodenum bx for possible celiec disease, pt has no clinical evidence though Complications: None Condition: Good
--- NOTE | 2020-07-20 10:41 | PCM.POSTAN ---
POST ANESTHESIA ASSESSMENT - MENTAL STATUS Mental Status: Alert, Oriented - VITAL SIGNS Vital Signs: Last Vital Signs Temp 36.5 C 07/20/20 09:30 Pulse 66 07/20/20 10:35 Resp 17 07/20/20 10:35 BP 93/57 L 07/20/20 10:35 Pulse Ox 99 07/20/20 10:35 - RESPIRATORY Respiratory Status: Respiratory Rate WNL, Airway Patent, O2 Saturation Stable - CARDIOVASCULAR CV Status: Pulse Rate WNL, Blood Pressure Stable - GASTROINTESTINAL GI Status: No Symptoms - POST OP HYDRATION Hydration Status: Adequate & Stable - OBSERVATIONS Free Text/Narrative:: The patient appears comfortable, and in no acute distress. There were no apparent anesthetic complications at this time. Discharge to Phase 2.
[2020-07-20 10:54] VITALS: BP 96/54; PULSE 62
--- NOTE | 2020-07-20 10:56 | PCM48HPAN ---
Post Anesthesia Note - EVALUATION WITHIN 48HRS OF ANESTHETIC Vital Signs in Normal Range: Yes Patient Participated in Evaluation: Yes Respiratory Function Stable: Yes Airway Patent: Yes Cardiovascular Function Stable: Yes Hydration Status Stable: Yes Pain Control Satisfactory: Yes Nausea and Vomiting Control Satisfactory: Yes Mental Status Recovered: Yes Vital Signs: Last Vital Signs Temp 36.2 C 07/20/20 10:40 Pulse 62 07/20/20 10:40 Resp 16 07/20/20 10:40 BP 96/54 L 07/20/20 10:40 Pulse Ox 99 07/20/20 10:40 - COMMENTS/OBSERVATIONS Free Text/Narrative:: The patient has no complaints at this time. There were no apparent anesthetic complications at this time. Discharge per criteria.
--- NOTE | 2020-07-20 12:19 | OR ---
SURGEON: Ramsey Devine MD DATE OF PROCEDURE: 07/20/2020 PREOPERATIVE DIAGNOSIS: Bright red blood per rectum and abdominal pain. POSTOPERATIVE DIAGNOSIS: Bright red blood per rectum and abdominal pain. PROCEDURE PERFORMED: Esophagogastroduodenoscopy with biopsy and colonoscopy with random biopsy. DESCRIPTION OF PROCEDURE: EGD: The patient was taken to the endoscopy room, and with the SNUBBER, Diprivan was administered. A well-lubricated EGD scope was gently inserted through the oropharynx, down the esophagus, passing through the gastroesophageal junction, into the stomach. The mucosa was examined upon the passage. Any etiology will be noted. Once in the stomach, we continued to advance to the distal antrum, passed through the pylorus into the second portion of the duodenum. Again, the mucosa was examined for any abnormality and etiology. The scope was then retrieved back to the stomach and then retroflexed to look at the fundus of the stomach. If a biopsy was indicated, we will biopsy the antrum, body, and gastroesophageal junction. The air will be sucked out while the scope is retrieved to reduce the patient's discomfort. The patient tolerated the procedure well. There were no intraoperative complications. Dr. Devine was present through the whole procedure. Prior to surgery, a time-out had been called, the patient identified, procedure identified and antibiotic administered. The patient was taken to the endoscopy room. A time out was called, patient identified, and procedure identified. Diprivan was then administrated. Patient went from awake to sleep, hearing doctor talking or door closing is normal. Perineum inspection and digital examination were then performed. A well- lubricated colonoscope was gently inserted through the rectum, advanced past the rectosigmoid junction, the descending colon, splenic flexure, transverse colon, hepatic flexure, ascending colon, arrived to the cecum. Cecum was identified as dictated in the finding. Then the scope was carefully withdrawn while attention was paid to the mucosal surface for any abnormality. Air will be sucked out during the scope withdrawal. At the rectum, retroflexed to examine any rectal diseases, fistula or hemorrhoids. During mucosal examination, abnormality or polyp was noted; picture taken and biopsy performed. Patient tolerated procedure well. There were no intraoperative complications, and Dr. Devine was present throughout the whole procedure. FINDINGS: EGD findings: 1. The patient is easily sedated with SNUBBER and Diprivan, the patient is soundly snoring. 2. Oropharynx and proximal esophagus are free of disease, inflammation, stricture, varicosity, none of those. Distal esophagus at GE junction at 38 to 40 was quite inflamed and with flame-like salmon-colored change and consistent with esophagitis. In some area, almost look like an ulcer. No bleeding ulcer yet. Stomach rugae is normal in appearance, and there is no bile, food particle, or blood observed. Antrum looks fine. Duodenum looks fine. Per patient request, duodenum closely looks normal, but will biopsy 2 times to assess celiac disease and retroflexed look at the fundus of stomach there is no hiatal hernia. Biopsy done at antrum, body, and GE junction x2, attempt to get the ulcer biopsy and sucked out the gas while scope pulling out. Colonoscopy findings: 1. The patient is easily sedated with SNUBBER and Diprivan, the patient is soundly snoring. 2. Bowel prep is average with some liquid stool, no stool ball. Colon rather straightforward. Cecum indicated by ileocecal fold, one-to-one indentation, appendiceal orifice and ScopeGuide is pointing south. Mucosa examined upon scope pulling out and the patient does not have diverticulosis, mass, growth, inflammation, stricture, AV malformation, bleeding, none of those and stool is completely yellow. A small polyp 2mm was removed with cold biopsy forcept at distance 70cm when scope went out. Random biopsy in 4 areas and the patient has external hemorrhoids and internal hemorrhoids. The patient would benefit from repeat colonoscopy in 10 years from today or if clinically indicated otherwise, and we will start the patient on omeprazole 40 mg p.o. daily for 1 month and with refill x3 and the patient probably would benefit from repeat EGD 6 months from today. MADDY / MUKUL /[id number] JOHNIE
== END 2020-07-20 11:22 | disposition home or self-care (01) ==
LOC: MW.SDS 09:00
PROVIDERS: ATTEND Surgery
DX: K63.5 Polyp of colon (principal); K20.90 Esophagitis, unspecified without bleeding; K31.89 Other diseases of stomach and duodenum; K64.4 Residual hemorrhoidal skin tags; K64.8 Other hemorrhoids; J45.909 Unspecified asthma, uncomplicated; E66.9 Obesity, unspecified; Z68.31 Body mass index [BMI] 31.0-31.9, adult; Z88.8 Allergy status to other drugs, medicaments and biological substances; Z79.899 Other long term (current) drug therapy; Z87.891 Personal history of nicotine dependence; Z98.890 Other specified postprocedural states
CPT/HCPCS: 43239; 45380; 88305; 88312; J2250; J2405; J2704; J3010; J7120; 00813